=== PATIENT | female | born 1940 | race Caucasian/White ===

== ENCOUNTER → 2018-04-10 | Outpatient (REF) | payer MEDICARE ==
[2018-04-10 10:40] LABS: CREATININE 1.2 mg/dL (0.5-1.0); POTASSIUM 4.6 mmol/l (3.5-5.1)
[2018-04-10 11:10] LABS: TSH, 3RD GENERATION 3.32 uIU/mL (0.47 - 4.68)
== END | disposition home or self-care (01) ==
LOC: LAB 08:56
PROVIDERS: ATTEND Internal Medicine
DX: E03.4 Atrophy of thyroid (acquired) (principal); E11.29 Type 2 diabetes mellitus with other diabetic kidney complication

== ENCOUNTER 2018-07-23 00:59 | Emergency (ER) | payer MEDICARE ==
[~2018-07-23] VITALS: Ht 177.8 cm; Wt 86.0 kg
[2018-07-23] MEDS ORDERED: FLEXERIL PO (03:53)
[2018-07-23] MEDS ORDERED: LORTAB 1010 MG PO (03:53)
[2018-07-23 04:15] VITALS: BP 165/67
== END 2018-07-23 04:15 | disposition home or self-care (01) ==
LOC: ED 00:59
DX: M51.9 Unspecified thoracic, thoracolumbar and lumbosacral intervertebral disc disorder (principal); S93.402A Sprain of unspecified ligament of left ankle, initial encounter; S93.602A Unspecified sprain of left foot, initial encounter; I10 Essential (primary) hypertension; W19.XXXA Unspecified fall, initial encounter; Z86.73 Personal history of transient ischemic attack (TIA), and cerebral infarction without residual deficits

== ENCOUNTER 2020-04-28 16:26 | Emergency (ER) | payer MEDICARE ==
[~2020-04-28] VITALS: Ht 177.8 cm; Wt 81.0 kg
[~2020-04-28 16:26] MED LIST: FLEXERIL PO; LORTAB 1010 MG PO
[2020-04-28 17:08] LABS: HEMATOCRIT 40.9 % (37.0-47.0); HEMOGLOBIN 13.1 g/dl (12.0-16.0); IMMATURE GRANULOCYTES 0.5 % (0.0-5.0); MEAN CELL VOLUME 95.1 fL CALC (80.0-100.0); MEAN CORPUSCULAR HGB 30.5 pG CALC (26.0-32.0); NEUT# 6.9 thou/uL (2.00-7.15); RED BLOOD COUNT 4.3 mill/uL (4.20-5.60); RED CELL DISTRI WIDTH 12.5 % (11.5-15.5)
[2020-04-28 17:27] LABS: ALBUMIN 4.3 g/dL (3.2-5.0); BILIRUBIN, TOTAL 0.7 mg/dL (0.0-1.4); CREATININE 1.1 mg/dL (0.5-1.0); TOTAL PROTEIN 7.1 g/dL (6.3-8.2)
[2020-04-28 21:06] LABS: URINE BILIRUBIN - DIPSTICK NEGATIVE (NEGATIVE); URINE BLOOD DIPSTICK TRACE-INTACT (NEGATIVE); URINE COLOR YELLOW; URINE GLUCOSE - DIPSTICK NEGATIVE (NEGATIVE); URINE KETONE NEGATIVE (NEGATIVE); URINE LEUK ESTERASE NEGATIVE (NEGATIVE); URINE NITRITE - DIPSTICK NEGATIVE (Negative); URINE PH 5.5 (4.5-8.0); URINE PROTEIN - DIPSTICK TRACE mg/dL (NEG-TRACE); URINE SPECIFIC GRAVITY >=1.030; URINE UROBILINOGEN - DIPSTICK 0.2 E.U./dL (0.2)
[2020-04-29 00:38] VITALS: BP 161/62
== END 2020-04-29 01:39 ==
LOC: ED 16:26
PROVIDERS: Emergency Medicine
DX: K80.70 Calculus of gallbladder and bile duct without cholecystitis without obstruction (principal); I10 Essential (primary) hypertension; Z86.73 Personal history of transient ischemic attack (TIA), and cerebral infarction without residual deficits; Z95.5 Presence of coronary angioplasty implant and graft; Z20.822 Contact with and (suspected) exposure to COVID-19
CPT/HCPCS: S0164

== ENCOUNTER 2021-10-28 17:51 | Emergency (ER) | payer MEDICARE ==
[~2021-10-28] VITALS: Ht 177.8 cm; Wt 93.0 kg
[2021-10-28 17:59] VITALS: BP 151/66
[2021-10-28 18:16] VITALS: BP 137/63
[2021-10-28 18:31] VITALS: BP 143/72
[2021-10-28] MEDS ORDERED: AMOXICILLIN500 MG PO (18:53)
[2021-10-28 19:01] VITALS: BP 136/62
[2021-10-28 19:27] VITALS: BP 136/62
[2021-10-29] MEDS ORDERED: AMOXICILLIN500 MG PO (14:18)
== END 2021-10-28 19:28 | disposition home or self-care (01) ==
LOC: ED 17:51
PROC: 0HQEXZZ Repair Left Lower Arm Skin, External Approach (ICD-10-PCS; principal; 2021-10-28)
DX: S51.812A Laceration without foreign body of left forearm, initial encounter (principal); I10 Essential (primary) hypertension; W22.09XA Striking against other stationary object, initial encounter; Y92.009 Unspecified place in unspecified non-institutional (private) residence as the place of occurrence of the external cause; Z86.73 Personal history of transient ischemic attack (TIA), and cerebral infarction without residual deficits; Z95.5 Presence of coronary angioplasty implant and graft

== ENCOUNTER 2021-10-30 13:35 | Emergency (ER) | payer MEDICARE ==
[~2021-10-30] VITALS: Ht 177.8 cm; Wt 90.9 kg
[~2021-10-30 13:35] MED LIST changes: +AMOXICILLIN500 MG PO
[2021-10-30 14:20] VITALS: BP 155/62
[2021-10-30 14:31] VITALS: BP 135/51
[2021-10-30] MEDS ORDERED: KEFLEX500 MG PO ×2 (14:44→14:45)
[2021-10-30 15:00] VITALS: BP 135/51
== END 2021-10-30 15:00 | disposition home or self-care (01) ==
LOC: ED 13:35
DX: T79.8XXA Other early complications of trauma, initial encounter (principal)

== ENCOUNTER 2022-01-18 16:07 | Observation (INO) | payer MEDICARE ==
[~2022-01-18] VITALS: Ht 177.8 cm; Wt 91.6 kg
[2022-01-18] VITALS (23 sets, daily range): BP systolic 116–173; BP diastolic 68–108
[~2022-01-18 16:07] MED LIST changes: +KEFLEX500 MG PO
[2022-01-18 17:00] LABS: HEMATOCRIT 41.6 % (37.0-47.0); HEMOGLOBIN 13.8 g/dl (12.0-16.0); IMMATURE GRANULOCYTES 0.3 % (0.0-5.0); MEAN CELL VOLUME 93.5 fL CALC (80.0-100.0); MEAN CORPUSCULAR HGB CONC 33.2 g/dL CAL (32.0-36.0); NEUT# 5.62 thou/uL (2.00-7.15); RED BLOOD COUNT 4.45 mill/uL (4.20-5.60); RED CELL DISTRI WIDTH 12.7 % (11.5-15.5)
--- NOTE | 2022-01-18 17:00 | NUR ---
PATIENT BROUGHT IN VIA EMS. ROOMED IN [facility]. PROVIDER NOTIFIED.
[2022-01-18 17:16] LABS: ALBUMIN 4.3 g/dL (3.2-5.0); CREATININE 1.1 mg/dL (0.5-1.0); POTASSIUM 4.3 mmol/l (3.5-5.1); TOTAL PROTEIN 7.2 g/dL (6.3-8.2)
--- NOTE | 2022-01-18 17:34 | NUR ---
Reassessment of patient completed. No distress noted.
[2022-01-18 17:58] LABS: BILIRUBIN, TOTAL 0.6 mg/dL (0.0-1.4)
--- NOTE | 2022-01-18 18:27 | NUR ---
patient resting in bed. no acute distress noted.
--- NOTE | 2022-01-18 19:03 | NUR ---
bedside report given to geo العلي
--- NOTE | 2022-01-18 19:15 | NUR ---
ASSUMED CARE OF PT. PT. DENIES NAUSEA, NO VOMITING AT PRESENT MONITOR READING AFIB RATE 105-129. DENIES SOB OR C/P
--- NOTE | 2022-01-18 20:15 | NUR ---
AWAKE ALERT, DNEIES NAUSEA STATES "YES, YES, SOMUCH BETTER". WHEN ASKED HOW MANY TIMES SHE VOMITED PT. STATES "HEAVENS I DON'T REALLY KNOW, ALOT". NO VOMITING OR C/O AT THIS TIME. IV CARDIZEN AT 5MG/HR VIA PIUMP. DENIES C/P DISCOMFORT OR SOB
--- NOTE | 2022-01-18 21:15 | NUR ---
MANDY CALLED TO [facility], WHEN PT. ASKED IF SHE HAD A MEDICATION LIST. PT. STATES "IN A DRAWER AT HOME". [id number] KNOWING MEDICATIONS
--- NOTE | 2022-01-18 21:25 | NUR ---
81 yr old white female admitted [id number] per stretcher from er. transferred x3 to bed. bed weight obtained. pt has hx of cva. knows how to answer questions but has difficulty or may take a few seconds to answer. history obtained per pt & er record. quality assurance monitor shows a fib. ivf infusing well. oriented to room. fall precautions & bed alarm initiated.
--- NOTE | 2022-01-18 21:25 | NUR ---
TRANSPORTED VIA STRETCHER NURSE MANAGER IN PLACE TO ICU 5
--- NOTE | 2022-01-18 22:00 | NUR ---
voided per bsc. urine spec collected & sent to lab.
--- NOTE | 2022-01-18 22:00 | NUR ---
blood drawn & sent to lab.
[2022-01-19] VITALS (20 sets, daily range): BP systolic 118–186; BP diastolic 53–92
--- NOTE | 2022-01-19 00:01 | NUR ---
awake. watching tv. no c/o voiced.
[2022-01-19 01:14] LABS: URINE BILIRUBIN - DIPSTICK NEGATIVE (NEGATIVE); URINE BLOOD DIPSTICK NEGATIVE (NEGATIVE); URINE COLOR YELLOW; URINE GLUCOSE - DIPSTICK 100 mg/dL (NEGATIVE); URINE KETONE NEGATIVE (NEGATIVE); URINE LEUK ESTERASE NEGATIVE (NEGATIVE); URINE PH 6.5 (4.5-8.0); URINE PROTEIN - DIPSTICK 100 mg/dL (NEG-TRACE); URINE SPECIFIC GRAVITY 1.025; URINE UROBILINOGEN - DIPSTICK 0.2 E.U./dL (0.2)
[2022-01-19 01:15] LABS: URINE NITRITE - DIPSTICK NEGATIVE (Negative)
[2022-01-19 01:29] LABS: URINE BACTERIA FEW hpf; URINE EPITHELIAL CELLS FEW EPI/hpf (0-FEW); URINE YEAST MODERATE hpf
--- NOTE | 2022-01-19 02:00 | NUR ---
eyes closed. no distress. youth nutritional monitor shows a fib pvcs.
--- NOTE | 2022-01-19 03:35 | NUR ---
lab here. blood drawn.
[2022-01-19 03:43] LABS: HEMATOCRIT 39.7 % (37.0-47.0); HEMOGLOBIN 13.3 g/dl (12.0-16.0); MEAN CELL VOLUME 94.1 fL CALC (80.0-100.0); MEAN CORPUSCULAR HGB 31.5 pG CALC (26.0-32.0); MEAN CORPUSCULAR HGB CONC 33.5 g/dL CAL (32.0-36.0); RED BLOOD COUNT 4.22 mill/uL (4.20-5.60); RED CELL DISTRI WIDTH 12.7 % (11.5-15.5)
[2022-01-19 04:03] LABS: ANION GAP 14 (6-22 (CALC)); BUN 18 mg/dL (8-23); BUN/CREATININE RATIO 21 (12-20 (CALC)); CARBON DIOXIDE 23 mmol/l (22-30); CHLORIDE 105 mmol/l (95-108); CREATININE 0.9 mg/dL (0.5-1.0); GFR FOR AFR.AMER. > 60 ML/MIN (>=60 (CALC)); GFR OTHER RACES 60 ML/MIN (>=60 (CALC)); MAGNESIUM 1.7 mg/dL (1.6-2.3); POTASSIUM 4.3 mmol/l (3.5-5.1); SODIUM 138 mmol/l (137-146)
--- NOTE | 2022-01-19 04:28 | NUR ---
night monitor shows sinus salas pvcs.
--- NOTE | 2022-01-19 06:00 | NUR ---
awake. no distress. cardiac surgeon shows sinus salas pvcs.
--- NOTE | 2022-01-19 08:00 | NUR ---
Patient lying in bed eating breakfast. Patient is showing no s/s of distress.
--- NOTE | 2022-01-19 10:00 | NUR ---
Patient lying in bed. No s/s of distress.
[2022-01-19] MEDS ORDERED: PAROXETINE10 MG PO (12:12)
[2022-01-19] MEDS ORDERED: CARVEDILOL6.25 MG PO (12:12)
[2022-01-19] MEDS ORDERED: OMEPRAZOLE DR40 MG PO (12:13)
[2022-01-19] MEDS ORDERED: PRAVASTATIN20 MG PO (12:14)
[2022-01-19] MEDS ORDERED: LIDOCAINE5 % EX (12:18)
--- NOTE | 2022-01-19 12:50 | NUR ---
PT HAS BEEN ABLE TO DRINK ORAL CONTRAST WITHOUT DIFFICULTY, NOW WAITING TO GO TO CT.
--- NOTE | 2022-01-19 14:15 | NUR ---
PATIENT BACK FROM CT. TOLERTED SCAN WELL. PATIENT CURRENTLY HAVING LUNCH. PATIENT SHOWING NO S/S OF DISTRESS.
--- NOTE | 2022-01-19 17:25 | NUR ---
. SON MIGUEL LEAVES HIS PHONE NUMBER.
--- NOTE | 2022-01-19 19:00 | NUR ---
Pt. assisted back to bed from bathroom. 2 assist needed to get her up from the toilet. Only stand by assist to ambulate back to the bed. Pt. cognitively delayed. Pt. slow to reply to questions and often requires ques.
--- NOTE | 2022-01-19 21:00 | NUR ---
pt. resting in bed. Requested lights and TV be turned off. Pt. repositioned herself. Will continue to monitor.
--- NOTE | 2022-01-19 22:26 | NUR ---
late entry. 2109 Dr. Otis Gomez made aware of heart rate in sinus bradycardia at a rate of 53. Orders received.
--- NOTE | 2022-01-19 23:00 | NUR ---
pt. B/P elevated. Pt. noted to be sitting up. Pt. waving arm from B/P squeezing her arm. Pt. assisted back to lying down. Will repeat B/P once pt. settled.
--- NOTE | 2022-01-19 23:21 | NUR ---
Repeat B/P is 175/85. Pt. resting comfortably.
[2022-01-20] VITALS (13 sets, daily range): BP systolic 138–181; BP diastolic 57–132
--- NOTE | 2022-01-20 00:40 | NUR ---
Pts. SBP still above 170. Heart rate ranging from 45 - 55. Dr. Otis Gomez made aware. Orders received. Pt in no distress. Will continue to monitor.
--- NOTE | 2022-01-20 02:15 | NUR ---
pt. asleep. easy to arouse. Will continue to monitor.
--- NOTE | 2022-01-20 03:00 | NUR ---
pt. yelling out. Blood pressure cuff going off. cuff removed from pts. arm and bleeding noted under cuff. Skin tear observed and area cleansed and 3x3 aquacell placed over skin tear. B/P cuff placed in another location. Pt. resting comfortably. Will continue to monitor.
--- NOTE | 2022-01-20 03:50 | NUR ---
Pt. easily arousable. Assessment completed. Pt. denies any complaints. Will continue to monitor.
--- NOTE | 2022-01-20 04:56 | NUR ---
pt. assisted to BSC. Pt. voided 500 cc of sukhjinder urine. Pt. tolerated activity. Pt. assisted back to bed. Will continue to monitor.
[2022-01-20 05:27] LABS: HEMATOCRIT 34.5 % (37.0-47.0); HEMOGLOBIN 11.7 g/dl (12.0-16.0); MEAN CORPUSCULAR HGB 32.2 pG CALC (26.0-32.0); MEAN CORPUSCULAR HGB CONC 33.9 g/dL CAL (32.0-36.0); RED BLOOD COUNT 3.63 mill/uL (4.20-5.60); RED CELL DISTRI WIDTH 13.1 % (11.5-15.5)
[2022-01-20 05:53] LABS: CREATININE 1.1 mg/dL (0.5-1.0); MAGNESIUM 2.2 mg/dL (1.6-2.3); POTASSIUM 3.9 mmol/l (3.5-5.1)
--- NOTE | 2022-01-20 07:58 | NUR ---
PT SEEN AWAKE, SLOW TO ANSWER, ORIENTED X 1-2. PT ABLE TO MOVE FROM BED TO CHAIR WITHOUT ASSIST. LUNGS WITH CRACKLES IN BASES, NO SHORTNESS OF BREATH.
[2022-01-20] MEDS ORDERED: ASPIRIN ADULT L81 M2 PO (09:40)
[2022-01-20] MEDS ORDERED: LEVOTHYROXIN50 MCG PO (09:41)
[2022-01-20] MEDS ORDERED: ZESTRIL40 MG PO (09:42)
[2022-01-20] MEDS ORDERED: ELIQUIS2.5 MG PO (11:13)
--- NOTE | 2022-01-20 12:19 | NUR ---
PT READY FOR DISCHARGE SON MIGUEL HAS ARRIVED. HE VERBALIZES UNDERSTANDING OF DC INSTRUCTIONS, MOM TO LOBBY IN WHEELCHAIR.
== END 2022-01-20 13:15 ==
LOC: ED 16:07 → ED-I 19:42 → ED 20:15 → ICU 20:16
PROVIDERS: Family Medicine; ADMIT Internal Medicine; ATTEND Internal Medicine
DX: I48.91 Unspecified atrial fibrillation (principal); R11.2 Nausea with vomiting, unspecified; I10 Essential (primary) hypertension; I25.10 Atherosclerotic heart disease of native coronary artery without angina pectoris; I69.319 Unspecified symptoms and signs involving cognitive functions following cerebral infarction; I69.320 Aphasia following cerebral infarction; I71.40 Abdominal aortic aneurysm, without rupture, unspecified; E03.9 Hypothyroidism, unspecified; Z90.49 Acquired absence of other specified parts of digestive tract; Z95.5 Presence of coronary angioplasty implant and graft; Z95.828 Presence of other vascular implants and grafts
CPT/HCPCS: J1650; Q9967

== ENCOUNTER 2022-07-13 18:23 | Emergency (ER) | payer MEDICARE ==
[~2022-07-13] VITALS: Ht 177.8 cm; Wt 86.0 kg
[~2022-07-13 18:23] MED LIST changes: +ASPIRIN ADULT L81 M2 PO; +CARVEDILOL6.25 MG PO; +ELIQUIS2.5 MG PO; +LEVOTHYROXIN50 MCG PO; +LIDOCAINE5 % EX; +OMEPRAZOLE DR40 MG PO; +PAROXETINE10 MG PO; +PRAVASTATIN20 MG PO; +ZESTRIL40 MG PO
[2022-07-13 18:32] VITALS: BP 188/91
[2022-07-13 18:57] VITALS: BP 188/91
== END 2022-07-13 18:57 | disposition home or self-care (01) ==
LOC: ED 18:23
DX: S60.444A External constriction of right ring finger, initial encounter (principal); I10 Essential (primary) hypertension; W49.04XA Ring or other jewelry causing external constriction, initial encounter; Z86.73 Personal history of transient ischemic attack (TIA), and cerebral infarction without residual deficits; Z95.5 Presence of coronary angioplasty implant and graft; Z79.01 Long term (current) use of anticoagulants

== ENCOUNTER 2022-09-06 14:13 | Observation (INO) | payer MEDICARE ==
[~2022-09-06] VITALS: Ht 177.8 cm; Wt 88.0 kg
[2022-09-06] VITALS (24 sets, daily range): BP systolic 126–176; BP diastolic 63–117
[2022-09-06 14:48] LABS: BASO% 0.7 % (0-3); EOS% 1.8 % (0-8); HEMATOCRIT 41.6 % (37.0-47.0); HEMOGLOBIN 13.2 g/dl (12.0-16.0); IMMATURE GRANULOCYTES 0.2 % (0.0-5.0); LYMPH% 24.3 % (15-41); MEAN CELL VOLUME 94.5 fL CALC (80.0-100.0); MEAN CORPUSCULAR HGB CONC 31.7 g/dL CAL (32.0-36.0); MONO% 8.8 % (2-13); NEUT# 3.67 thou/uL (2.00-7.15); NEUT% 64.2 % (42-76); RED BLOOD COUNT 4.4 mill/uL (4.20-5.60); RED CELL DISTRI WIDTH 13.2 % (11.5-15.5)
[2022-09-06 15:01] LABS: ALBUMIN 4.1 g/dL (3.2-5.0); ALKALINE PHOSPHATASE 136 u/l (38-126); ANION GAP 13 (6-22 (CALC)); BUN 24 mg/dL (8-23); BUN/CREATININE RATIO 19 (12-20 (CALC)); CARBON DIOXIDE 23 mmol/l (22-30); CHLORIDE 106 mmol/l (95-108); CREATININE 1.3 mg/dL (0.5-1.0); GFR FOR AFR.AMER. 48 ML/MIN (>=60 (CALC)); GFR OTHER RACES 39 ML/MIN (>=60 (CALC)); POTASSIUM 4.6 mmol/l (3.5-5.1); SGOT/AST 43 u/l (9-36); SODIUM 138 mmol/l (137-146); TOTAL PROTEIN 6.9 g/dL (6.3-8.2)
[2022-09-06 15:02] LABS: BILIRUBIN, TOTAL 0.8 mg/dL (0.02-1.3)
[2022-09-06 15:08] LABS: D-DIMER 0.86 mg/L (0.19-0.60); INTERNATIONAL NORMALIZED RATIO 1.1 RATIO (0.7-1.3); PROTHROMBIN TIME 11.1 SECONDS (9.0-12.5)
[2022-09-07] VITALS (15 sets, daily range): BP systolic 117–165; BP diastolic 67–106
[2022-09-07 08:23] LABS: BASO% 0.6 % (0-3); EOS% 1.9 % (0-8); HEMATOCRIT 42.9 % (37.0-47.0); HEMOGLOBIN 13.2 g/dl (12.0-16.0); IMMATURE GRANULOCYTES 0.2 % (0.0-5.0); LYMPH% 21.4 % (15-41); MEAN CELL VOLUME 97.5 fL CALC (80.0-100.0); MEAN CORPUSCULAR HGB CONC 30.8 g/dL CAL (32.0-36.0); MONO% 7.8 % (2-13); NEUT# 3.3 thou/uL (2.00-7.15); NEUT% 68.1 % (42-76); RED BLOOD COUNT 4.4 mill/uL (4.20-5.60); RED CELL DISTRI WIDTH 13.5 % (11.5-15.5)
[2022-09-07 08:32] LABS: CREATININE 1.2 mg/dL (0.5-1.0); MAGNESIUM 1.9 mg/dL (1.6-2.3); POTASSIUM 4.2 mmol/l (3.5-5.1)
[2022-09-07] MEDS ORDERED: CARVEDILOL25 MG PO (11:58)
== END 2022-09-07 13:53 | disposition home health service (06) ==
LOC: ED 14:13 → ICU 18:56 → ED 21:20 → ICU 09-07 13:53
PROVIDERS: Family Medicine; Internal Medicine; ADMIT Internal Medicine; ATTEND Internal Medicine
DX: I48.91 Unspecified atrial fibrillation (principal); I10 Essential (primary) hypertension; I25.10 Atherosclerotic heart disease of native coronary artery without angina pectoris; E03.9 Hypothyroidism, unspecified; Z86.73 Personal history of transient ischemic attack (TIA), and cerebral infarction without residual deficits; Z95.5 Presence of coronary angioplasty implant and graft; Z95.828 Presence of other vascular implants and grafts; Z79.01 Long term (current) use of anticoagulants

== ENCOUNTER 2024-01-20 11:05 | Observation (INO) | payer MEDICARE ==
[~2024-01-20] VITALS: Ht 182.9 cm; Wt 94.2 kg
[2024-01-20] VITALS (15 sets, daily range): BP systolic 108–164; BP diastolic 67–96
[~2024-01-20 11:05] MED LIST changes: +CARVEDILOL25 MG PO
[2024-01-20 12:04] LABS: BASO% 0.2 % (0-3); EOS% 1.3 % (0-8); HEMATOCRIT 36.2 % (37.0-47.0); HEMOGLOBIN 11.5 g/dl (12.0-16.0); MEAN CELL VOLUME 99.5 fL CALC (80.0-100.0); MEAN CORPUSCULAR HGB 31.6 pG CALC (26.0-32.0); MEAN CORPUSCULAR HGB CONC 31.8 g/dL CAL (32.0-36.0); MONO% 6.1 % (2-13); NEUT# 3.57 thou/uL (2.00-7.15); NEUT% 77.4 % (42-76); RED BLOOD COUNT 3.64 mill/uL (4.20-5.60); RED CELL DISTRI WIDTH 13.1 % (11.5-15.5)
[2024-01-20 12:20] LABS: ALBUMIN 3.6 g/dL (3.2-5.0); ALKALINE PHOSPHATASE 108 u/l (38-126); ANION GAP 13 (6-22 (CALC)); BILIRUBIN, TOTAL 0.7 mg/dL (0.02-1.3); BUN 23 mg/dL (8-23); BUN/CREATININE RATIO 15 (12-20 (CALC)); CARBON DIOXIDE 27 mmol/l (22-30); CHLORIDE 105 mmol/l (95-108); CREATININE 1.5 mg/dL (0.5-1.0); ESTIMATED GFR 35 ML/MIN (>=90 (CALC)); ETHYL ALCOHOL 0 mg/dl (0-30); POTASSIUM 4.6 mmol/l (3.5-5.1); SGOT/AST 17 u/l (9-36); SODIUM 139 mmol/l (137-146)
[2024-01-20 12:50] LABS: TSH, 3RD GENERATION 2.11 uIU/mL (0.47 - 4.68)
[2024-01-20 14:48] LABS: URINE BILIRUBIN - DIPSTICK Negative (NEGATIVE); URINE BLOOD DIPSTICK Negative (NEGATIVE); URINE GLUCOSE - DIPSTICK Negative (NEGATIVE); URINE KETONE Negative (NEGATIVE); URINE LEUK ESTERASE Negative (NEGATIVE); URINE NITRITE - DIPSTICK Negative (Negative); URINE PH 5.5 (4.5-8.0); URINE PROTEIN - DIPSTICK Negative (NEG-TRACE); URINE UROBILINOGEN - DIPSTICK 0.2 E.U./dL (0.2)
[2024-01-20 14:55] LABS: URINE COLOR Yellow
[2024-01-20] MEDS ORDERED: CARVEDILOL25 MG PO (15:17)
[2024-01-20] MEDS ORDERED: MAGNESIUM HYDROXIDE 30 ML UDC PO PRN (16:00)
[2024-01-20] MEDS ORDERED: ACETAMINOPHEN 325 MG/TAB PO PRN (16:00)
[2024-01-20] MEDS ORDERED: HALOPERIDOL LACTATE 5 MG/ML SDV IV PRN (16:05)
[2024-01-20] MEDS ORDERED: CARVEDILOL 25 MG/TAB PO SCH (16:30)
[2024-01-20] MEDS ORDERED: APIXABAN BASE 2.5 MG/TAB TAB PO SCH (21:00)
[2024-01-21] VITALS (9 sets, daily range): BP systolic 118–150; BP diastolic 67–92
[2024-01-21 05:54] LABS: BASO% 0.5 % (0-3); EOS% 2.3 % (0-8); HEMATOCRIT 33.6 % (37.0-47.0); HEMOGLOBIN 10.8 g/dl (12.0-16.0); IMMATURE GRANULOCYTES 0.3 % (0.0-5.0); LYMPH% 25.5 % (15-41); MEAN CELL VOLUME 98.8 fL CALC (80.0-100.0); MEAN CORPUSCULAR HGB 31.8 pG CALC (26.0-32.0); MEAN CORPUSCULAR HGB CONC 32.1 g/dL CAL (32.0-36.0); MONO% 7.4 % (2-13); NEUT# 2.51 thou/uL (2.00-7.15); RED BLOOD COUNT 3.4 mill/uL (4.20-5.60); RED CELL DISTRI WIDTH 13.1 % (11.5-15.5)
[2024-01-21] MEDS ORDERED: LEVOTHYROXINE SODIUM 50 MCG/TAB PO SCH (06:00)
[2024-01-21 06:13] LABS: ALBUMIN 3.2 g/dL (3.2-5.0); BILIRUBIN, TOTAL 0.5 mg/dL (0.02-1.3); CHOLESTEROL HDL RATIO 3.5 (<4.4 (CALC)); CREATININE 1.4 mg/dL (0.5-1.0); MAGNESIUM 1.8 mg/dL (1.6-2.3); TOTAL PROTEIN 5.7 g/dL (6.3-8.2)
[2024-01-21] MEDS ORDERED: PARoxetine 10 MG/TAB PO SCH (09:00)
[2024-01-21] MEDS ORDERED: PANTOPRAZOLE SODIUM Sesquihydr 40 MG/TAB PO SCH (09:00)
[2024-01-21] MEDS ORDERED: MECLIZINE25 MG PO (14:58)
[2024-01-22] MEDS ORDERED: PNEUMOCOCCAL 20-VALENT CONJUGA 0.5 ML/DOSE INJ IM SCH (09:00)
[2024-01-22] MEDS ORDERED: INFLUENZA VIRUS VACCINE FLUZONE HD 2024/25 0.5 ML INJ IM SCH (09:00)
== END 2024-01-21 16:40 | disposition home health service (06) ==
LOC: ED 11:05 → ED-I 14:40 → ED 15:14 → MS2 15:15
PROVIDERS: Family Medicine; ADMIT Student in an Organized Health Care Education/Training Program; ATTEND Student in an Organized Health Care Education/Training Program
DX: R55 Syncope and collapse (principal); S00.33XA Contusion of nose, initial encounter; I12.9 Hypertensive chronic kidney disease with stage 1 through stage 4 chronic kidney disease, or unspecified chronic kidney disease; N18.32 Chronic kidney disease, stage 3b; I48.91 Unspecified atrial fibrillation; E03.9 Hypothyroidism, unspecified; I69.331 Monoplegia of upper limb following cerebral infarction affecting right dominant side; I69.322 Dysarthria following cerebral infarction; I69.398 Other sequelae of cerebral infarction; G93.89 Other specified disorders of brain; W18.30XA Fall on same level, unspecified, initial encounter; Y92.511 Restaurant or cafe as the place of occurrence of the external cause; Z79.01 Long term (current) use of anticoagulants; Z91.81 History of falling; Z95.820 Peripheral vascular angioplasty status with implants and grafts
CPT/HCPCS: 90662; G0378

== ENCOUNTER 2024-04-12 13:29 | Observation (INO) | payer MEDICARE ==
[2024-04-12] VITALS (23 sets, daily range): BP systolic 104–154; BP diastolic 44–91
[~2024-04-12] VITALS: Ht 182.9 cm; Wt 93.4 kg
[~2024-04-12 13:29] MED LIST changes: +MECLIZINE25 MG PO
--- NOTE | 2024-04-12 13:40 | NUR ---
PT TO ROOM 13 VIA WHEELCHAIR
[2024-04-12 14:08] LABS: BASO% 0.8 % (0-3); EOS% 1.5 % (0-8); HEMATOCRIT 40.4 % (37.0-47.0); HEMOGLOBIN 12.8 g/dl (12.0-16.0); IMMATURE GRANULOCYTES 0.2 % (0.0-5.0); LYMPH% 19.6 % (15-41); MEAN CELL VOLUME 95.3 fL CALC (80.0-100.0); MEAN CORPUSCULAR HGB 30.2 pG CALC (26.0-32.0); MEAN CORPUSCULAR HGB CONC 31.7 g/dL CAL (32.0-36.0); MONO% 8.2 % (2-13); NEUT# 3.66 thou/uL (2.00-7.15); NEUT% 69.7 % (42-76); RED BLOOD COUNT 4.24 mill/uL (4.20-5.60); RED CELL DISTRI WIDTH 13.5 % (11.5-15.5)
[2024-04-12 14:22] LABS: ALBUMIN 3.9 g/dL (3.2-5.0); ALKALINE PHOSPHATASE 131 u/l (38-126); BUN 18 mg/dL (8-23); BUN/CREATININE RATIO 13 (12-20 (CALC)); CHLORIDE 106 mmol/l (95-108); CREATININE 1.4 mg/dL (0.5-1.0); ESTIMATED GFR 38 ML/MIN (>=90 (CALC)); LIPASE 80 u/l (23-300); POTASSIUM 4.6 mmol/l (3.5-5.1); SGOT/AST 24 u/l (9-36); SODIUM 137 mmol/l (137-146); TOTAL PROTEIN 6.8 g/dL (6.3-8.2)
[2024-04-12 14:27] LABS: ANION GAP 13 (6-22 (CALC)); CARBON DIOXIDE 23 mmol/l (22-30)
--- NOTE | 2024-04-12 14:30 | NUR ---
Reassessment of patient completed. No distress noted.
[2024-04-12] MEDS ORDERED: Barium Sulfate (Readi-Cat 2 Banana) 450 ML/BTL PO ONE (14:45)
[2024-04-12] MEDS ORDERED: Barium Sulfate (Readi-Cat 2 Berry) 450 ML/BTL PO ONE (14:45)
[2024-04-12] MEDS ORDERED: DIATRIZOATE MEGLUMINE & SODIUM 30 ML/BTL PO ONE (14:45)
[2024-04-12 15:00] LABS: URINE BLOOD DIPSTICK Trace-intact (NEGATIVE); URINE GLUCOSE - DIPSTICK Negative (NEGATIVE); URINE KETONE Trace mg/dL (NEGATIVE); URINE LEUK ESTERASE Negative (NEGATIVE); URINE PH 5.5 (4.5-8.0); URINE PROTEIN - DIPSTICK 30 mg/dL (NEG-TRACE); URINE SPECIFIC GRAVITY >=1.030
[2024-04-12 15:02] LABS: URINE COLOR Dark yellow; URINE NITRITE - DIPSTICK Positive (Negative)
[2024-04-12 15:09] LABS: URINE BACTERIA MODERATE hpf; URINE RBC 0-2 RBC/hpf (0-5); URINE SQUAMOUS EPITHELIAL CELL FEW EPI/hpf (0-FEW)
--- NOTE | 2024-04-12 15:13 | NUR ---
GASTROGRAFIN ORDERED, FIRST DOSE GIVEN AT 1500. GASTROGRAFIN DC'D PER PROVIDER.
--- NOTE | 2024-04-12 16:27 | NUR ---
ALL RESULTS AVAILABLE, PROVIDER NOTIFIED
[2024-04-12] MEDS ORDERED: FUROSEMIDE 40 MG/4 ML SDV IV ONE (16:50)
--- NOTE | 2024-04-12 17:07 | NUR ---
PT TO ICU RM 7
[2024-04-12] MEDS ORDERED: PAROXETINE10 MG PO (17:13)
[2024-04-12] MEDS ORDERED: VITAMIN B-121000 MCG PO (17:14)
[2024-04-12] MEDS ORDERED: MECLIZINE25 MG PO (17:15)
[2024-04-12] MEDS ORDERED: VITAMIN D-32000 UNI1 PO (17:15)
[2024-04-12] MEDS ORDERED: TYLENOL500 MG PO (17:16)
[2024-04-12] MEDS ORDERED: ACETAMINOPHEN 325 MG/TAB PO PRN (17:30)
[2024-04-12] MEDS ORDERED: MAGNESIUM HYDROXIDE 30 ML UDC PO PRN (17:30)
--- NOTE | 2024-04-12 18:08 | NUR ---
WAITING ON APPROVAL TO TAKE PT UP TO RM 7
--- NOTE | 2024-04-12 18:48 | NUR ---
BEDSIDE REPORT FROM ED NURSE NICKY. PT ARRIVED ON UNIT @ 182, ALERT AND ORIENTED TO PLACE AND PERSON, NO C/O DISCOMFORT AT THIS TIME EXCEPT FOR C/O OF ADELITA IN ED SINCE 1000, HAS HAD NOTHING TO EAT SINCE THEN AND IS VERY HUNGRY AT THIS TIME. ORIENTED TO ROOM AND CALL [facility], EDUCATED/INFORMES ON FALL PRECAUTIONS AND ADVISED TO CALL FOR ASSISTANCE NEEDED.
--- NOTE | 2024-04-12 19:45 | NUR ---
awake. has had old cva. expressive aphasia conts. cardiac tech shows a fib. saline lock in place. history per er & old record. oriented to room. fall precaution & bed alarm conts. daughter @ bedside.
[2024-04-12] MEDS ORDERED: CARVEDILOL 25 MG/TAB PO SCH (21:00)
[2024-04-12] MEDS ORDERED: PARoxetine 10 MG/TAB PO SCH (21:00)
[2024-04-12] MEDS ORDERED: APIXABAN BASE 2.5 MG/TAB TAB PO SCH (21:00)
[2024-04-13] VITALS (15 sets, daily range): BP systolic 113–148; BP diastolic 60–90
--- NOTE | 2024-04-13 00:01 | NUR ---
eyes closed. pipe cutter shows a fib.
[2024-04-13] MEDS ORDERED: LEVOTHYROXINE SODIUM 50 MCG/TAB PO SCH (06:00)
--- NOTE | 2024-04-13 07:10 | NUR ---
PT LAYING IN LOW FOWLERS POSITION WITH EYES OPEN. PT BOOSTED UP IN BED AND RAISED THE HEAD OF THE BED AND IS EATING BREAKFAST NOW. PT STATED NORMAL BM THIS MORNING. ASSESSMENT COMPLETED. RESP EVEN AND UNLABORED ON ROOM AIR. NORMAL S1,S2 HEART RYTHM. ACTIVE BOWEL SOUNDS IN ALL 4. NO S/S OF DISTRESS. 20G RAC IN PLACE. BED IN THE LOWEST POSITION AND CALL [facility] WITHIN REACH.
[2024-04-13] MEDS ORDERED: PANTOPRAZOLE SODIUM Sesquihydr 40 MG/TAB PO SCH (09:00)
--- NOTE | 2024-04-13 12:00 | NUR ---
PT SITTING IN BED SIDE CHAIR EATING LUNCH WHILE WATCHING TV. NO S/S OF DISTRESS. PATIENT ORIENTED TO SELF AND PLACE, SOMETIMES TIME. RESP EVEN AND UNLABORED. TELLE IN PLACE. DECLINES ANY PAIN AT THIS TIME. PT DECLINES ANY NEEDS AT THIS TIME. CALL [facility] WITHIN REACH.
--- NOTE | 2024-04-13 16:00 | NUR ---
PT SITTING IN BED SIDE RECLINER WITH GRANDDAUGHTER AT BESIDE. NO S/S OF DISTRESS. PT BREATHING IS EVEN AND UNLABORED ON ROOM AIR. PT DECLINES ANY PAIN AT THIS TIME. ALERT AND ORIENTED TO SELF AND PLACE STILL, CAN TELL ME MONTH THAT I REMINDED HER OF EARLIER. PT PRECAUTIONS REINFORCED. REMINDED TO USE CALL [facility] BEFORE TRYING TO AMBULATE. CALL [facility] WITHIN REACH.
[2024-04-13] MEDS ORDERED: KEFLEX500 MG PO (17:47)
--- NOTE | 2024-04-13 19:11 | NUR ---
Discharge instructions given. Patient verbalizes understanding of same. Discharged in stable condition via Wheelchair to Home with staff. All belongings sent with pt.
--- NOTE | 2024-04-16 12:14 | NUR ---
Discharge follow up call completed 04/16/24. Patient states she is doing much better since discharge. No new medication was prescribed at discharge. Patient has a follow up appointment with her PCP on 04/19/24. No needs or concerns verbalized by patient at this time.
== END 2024-04-13 19:10 | disposition home or self-care (01) ==
LOC: ED 13:29 → ED-I 16:30 → ED 16:45 → ICU 16:46
PROVIDERS: Nurse Practitioner; ADMIT Internal Medicine; ATTEND Internal Medicine
DX: R55 Syncope and collapse (principal); N39.0 Urinary tract infection, site not specified; B96.20 Unspecified Escherichia coli [E. coli] as the cause of diseases classified elsewhere; I12.9 Hypertensive chronic kidney disease with stage 1 through stage 4 chronic kidney disease, or unspecified chronic kidney disease; E11.22 Type 2 diabetes mellitus with diabetic chronic kidney disease; N18.30 Chronic kidney disease, stage 3 unspecified; I25.10 Atherosclerotic heart disease of native coronary artery without angina pectoris; K21.9 Gastro-esophageal reflux disease without esophagitis; F03.90 Unspecified dementia, unspecified severity, without behavioral disturbance, psychotic disturbance, mood disturbance, and anxiety; E78.5 Hyperlipidemia, unspecified; I48.91 Unspecified atrial fibrillation; E03.9 Hypothyroidism, unspecified; I69.920 Aphasia following unspecified cerebrovascular disease; Z79.01 Long term (current) use of anticoagulants; Z95.5 Presence of coronary angioplasty implant and graft
CPT/HCPCS: J0696; J1940